=== PATIENT | female | born 1995 | race Hispanic/Latino ===

== ENCOUNTER 2023-10-22 01:50 | Emergency (ER) | payer OTHER ==
[2023-10-22] MEDS ORDERED: Ondansetron PF 4 MG/2 ML Vial ONE (02:09)
[2023-10-22] MEDS ORDERED: Ketorolac Tromethamine 30 MG (1 mL) VIAL ONE (02:09)
[2023-10-22] MEDS ORDERED: Morphine 4 MG/ML VIAL ONE (02:09)
[2023-10-22 02:50] LABS: BHCG - Serum Negative (NEGATIVE); Pregs Control Background? CLEAR/WHITE (CLR/WHITE); Pregs Control Bar Appear? YES (CONTROL BAR)
[2023-10-22 03:05] LABS: #Basophils 0.04 10x3/uL (0.0-0.2); %Basophils 0.2 % (0.0-1.0); %Eosinophils 1.2 % (0.0-10.0); %Lymphocytes 23.3 % (21.0-51.0); %Monocytes 5.6 % (0.0-10.0); Hematocrit 44.8 % (36.0-47.0); Hemoglobin 14.5 g/dL (12.0-16.0); Mean Corpuscular HGB CONC 32.4 g/dL (32.0-36.0); Mean Corpuscular Hemoglobin 28.8 pg (27.0-31.0); Mean Corpuscular Volume 89.1 fL (78.0-98.0); Mean Platelet Volume 11.4 fL (7.4-10.4); Platelet Count 284 10x3/uL (130-400); RBC Distribution Width 13.6 % (11.5-14.5); Red Blood Cell (RBC) Count 5.03 mill/uL (4.20-5.40)
[2023-10-22 03:49] LABS: ALT (SGPT) 64 U/L (8-55); AST (SGOT) 33 U/L (5-34); Albumin 4.1 g/dL (3.5-5.0); Alkaline Phosphatase 112 U/L (40-110); Anion Gap 15 mmol/L (10-20); BUN (Urea Nitrogen) 11 mg/dL (7.0-18.7); Calc. Creatinine Clearance 0 mL/min (70-130); Calcium 9.5 mg/dL (7.8-10.44); Carbon Dioxide 20 mmol/L (22-29); Chloride 109 mmol/L (98-107); Estimated GFR 114; Glucose 128 mg/dL (70-105); Potassium 3.7 mmol/L (3.5-5.1); Protein, Total 8.1 g/dL (6.0-8.3); Sodium 140 mmol/L (136-145)
[2023-10-22 03:56] LABS: Bilirubin Negative (Negative); Blood, Urine Trace (Negative); CAUTI Indications for Culture Pelvic or flank pain; Clarity Clear (Clear); Glucose, Urine (Dipstick) Normal (Negative); Ketone, Urine Negative (Negative); Leukocyte Negative Leu/uL (Negative); Nitrite Negative (Negative); Protein, Urine (Dipstick) Negative (Neg-Trace); Squamous Epithelial 0-3 HPF (0-3); Urobilinogen Normal mg/dL (Less than 2)
[2023-10-22 03:58] LABS: Bacteria/HPF 1+ HPF (None Seen); Specific Gravity, Urine 1.048 (1.002-1.036); Urine Culture Reflex Yes Yes
[2023-10-22 04:12] LABS: Bilirubin, Total 0.3 mg/dL (0.2-1.2)
[2023-10-22] MEDS ORDERED: Iopamidol 370 76% 100 ML VIAL ONE (15:20)
== END 2023-10-22 06:20 | disposition home or self-care (01) ==
LOC: ERS 01:50
DX: S52.502A Unspecified fracture of the lower end of left radius, initial encounter for closed fracture (principal); S30.1XXA Contusion of abdominal wall, initial encounter; Z55.6 Problems related to health literacy; V89.2XXA Person injured in unspecified motor-vehicle accident, traffic, initial encounter
CPT/HCPCS: 29105; 71045; 74177; 80053; 81001; 84703; 85025; 87077; 87086; 96374; 96375; J1885; J2270; J2405; Q9967